=== PATIENT | male | born 1955 | race American Indian/Alaskan Native ===

== ENCOUNTER 2019-02-22 14:33 | Emergency (ER) | payer OTHER ==
--- NOTE | 2019-02-22 15:14 | Emergency Department Report ---
Chief Complaint: High BP Stated Complaint: HBP Time Seen by Provider: 02/22/19 14:46 - HPI History of Present Illness: 63 y o Male with a Hx of HTN un controlled with medication presents for refill of his blood pressure medication. Patient states he has not been taking those medications because he ran out. Patient denies chest pain, fever, headache, blurred vision, dizziness or any other symptoms. Patient states that he noticed when he has not taken his low pressure medication for a while his blood pressure goes up. Patient states he was trying to reduce it with some modification. - ROS Review of Systems: As noted in HPI - Exam Vital Signs: GENERAL: Alert and oriented x3, no apparent distress, Normal Gait, atraumatic. HEAD: Head is normocephalic and a-traumatic. LUNGS: Symetrical with respiration, No wheezing, no rales or crackles, CTAB. HEART: S1, S2 present, regular rate and rhythm without murmur, no rubs, no gallops. Non tender to palpation SKIN: Warm and dry, No lesions, No ulceration or induration present. MSE screening note: Focused history and physical exam performed. Due to findings the following was ordered: ED Medical Decision Making - Medical Decision Making 63 y with a htn presents for medication refill He is asymptomatic in the Ed States will follow up with pcp Vital signs are stable patient is in no acute distress. Patient will be discharged with a refill for his HCTZ which is what she normally takes for his blood pressure. ED Disposition for MSE Clinical Impression: Benign secondary hypertension Disposition: DC-01 TO HOME OR SELFCARE Is pt being admited?: No Does the pt Need Aspirin: No Condition: Stable Instructions: Hypertension (ED) Additional Instructions: f/u with pcp take your bp medications as prescribed reduce salt intake Prescriptions: hydroCHLOROthiazide [Hctz] 12.5 mg PO QDAY #60 capsule Referrals: [facility] [Outside] - 3-5 Days [facility] [Outside] - 3-5 Days Forms: Accompanied Note, Work/School Release Form(ED) Time of Disposition: 15:19
[2019-02-22 15:20] VITALS: BP 142/102
== END 2019-02-22 15:37 | disposition home or self-care (01) ==
LOC: ED 14:33
DX: I15.9 Secondary hypertension, unspecified (principal)
CPT/HCPCS: 99282